=== PATIENT | female | born 1945 | race Caucasian/White ===

== ENCOUNTER → 2016-09-21 | Outpatient (CLI) | payer OTHER ==
[~2016-09-21] MED LIST: ASPI81TA28 PO; CALCTAB7 PO; CARV6.252 PO; HYDR12.55 PO; LISI-725 PO; MELO7.5T6 PO; MISCCAP80 PO; MOXI400T2 PO; MULT-513 PO; OMEG10007 PO
[2016-09-21 13:53] LABS: BLOOD UREA NITROGEN 21 mg/dl (7-18); BUN/CREATININE RATIO 19.2 (10-20); CALCIUM 8.9 mg/dl (8.5-10.1); CARBON DIOXIDE 31 mmol/L (21-32); CHLORIDE 107 mmol/L (98-107); GLUCOSE 83 mg/dl (70-99); SODIUM 143 mmol/L (136-145)
== END | disposition home or self-care (01) ==
LOC: C.LAB1850 09:46
PROVIDERS: ATTEND Internal Medicine Interventional Cardiology
DX: I10 Essential (primary) hypertension (principal); I34.1 Nonrheumatic mitral (valve) prolapse; E78.5 Hyperlipidemia, unspecified; Z11.59 Encounter for screening for other viral diseases

== ENCOUNTER → 2016-12-08 | Outpatient (CLI) | payer OTHER ==
[2016-12-08 09:59] LABS: BASO % 0.6 %; BASO ABS # 0.03 K/uL (0-0.2); COMPLETE YES; EOS % 8.8 %; IG% 0.2 %; LYMPH % 32.6 %; LYMPH ABS # 1.75 K/uL (1.2-3.4); MEAN CELL VOLUME 90.7 fL (80-100); MEAN CORPUSCULAR HGB CONC 35.3 g/dl (32-36); MEAN PLATELET VOLUME 10.1 fL (7.4-10.4); MONO % 6.9 %; NEUT % 50.9 %; PLATELET COUNT 174 K/uL (130-400); RED BLOOD COUNT 4.19 M/uL (4.2-5.4); WHITE BLOOD COUNT 5.36 K/uL (4.8-10.8)
[2016-12-08 10:34] LABS: CHOLESTEROL/HDL RATIO 3.7; THYROID STIMULATING HORMONE 2.66 uIu/ml (0.300-4.500)
== END | disposition home or self-care (01) ==
LOC: C.LAB1850 09:17
PROVIDERS: ATTEND Internal Medicine
DX: E78.5 Hyperlipidemia, unspecified (principal); D72.819 Decreased white blood cell count, unspecified

== ENCOUNTER → 2016-12-24 | Outpatient (CLI) | payer OTHER ==
--- NOTE | 2016-12-24 09:35 | DIAGNOSTIC IMAGING REPORT ---
LUMBAR SPINE W/O CONTRAST CLINICAL HISTORY: 71 years-old Female presenting with BACK AND RIGHT LEG PAIN. TECHNIQUE: Multisequence, multiplanar MR imaging of the lumbar spine was performed without use of intravenous contrast. COMPARISON: Plain radiographs of the lumbar spine from 09/10/[address] of the abdomen pelvis from 02/09/2013. FINDINGS: Motion artifact mildly degrades axial imaging, limiting evaluation at L5-S1. Vertebral bodies maintain normal height and alignment. T1 hyperintense, T2 hyperintense fatty endplate changes at L5-S1 (Modic type 2). Bone marrow signal intensity otherwise normal. Intervertebral disc desiccation at L5-S1 without significant height loss. No increased signal intensity within the disc spaces or facet joints. Mild disc bulges at L4-5 and L5-S1 without significant mass effect on the ventral thecal sac. Mild facet arthropathy also noted at these levels. Mild bilateral neural foraminal narrowing at L5-S1. Remaining neural foramina patent. Few Tarlov cysts noted in the sacral region. Spinal cord is in good position at L1. Cauda equina normal. Paraspinal soft tissues normal. Visualized pelvic structures normal. IMPRESSION: 1. Mild degenerative changes primarily at L4-5 and L5-S1 with mild bilateral neural foraminal narrowing at L5-S1. Electronically signed by: Tommy Vargas M.D. 12/24/2016 9:33 AM Dictated Date/Time: 12/24/2016 9:23 AM
== END | disposition home or self-care (01) ==
LOC: C.MRIBC 08:25
PROVIDERS: ATTEND Orthopaedic Surgery
DX: M47.816 Spondylosis without myelopathy or radiculopathy, lumbar region (principal); M47.817 Spondylosis without myelopathy or radiculopathy, lumbosacral region

== ENCOUNTER → 2017-01-05 | Outpatient (CLI) | payer OTHER ==
--- NOTE | 2017-01-05 10:35 | DIAGNOSTIC IMAGING REPORT ---
FLUOROSCOPICALLY GUIDED INTRA-ARTICULAR LEFT HIP STEROID INJECTION CLINICAL HISTORY: Left hip degenerative joint disease. FLUOROSCOPY TIME: 13 seconds. FINDINGS: Fluoroscopic image was obtained. The procedure, risks and benefits were discussed with the patient and informed written consent was obtained. The procedure was performed by Dr. Turner following a timeout. Fluoroscopy of the left hip demonstrated severe osteoarthritis with near complete loss of the joint space and extensive osteophytosis and sclerosis. Skin overlying the left hip was prepped and draped in sterile fashion and local anesthesia was achieved with 1% lidocaine. Under intermittent fluoroscopic guidance, a 3 1/2 inch 22-gauge needle was directed into left hip joint. Positioning within the joint space was confirmed with injection of 1 cc of Optiray 300. At this time, a mixture containing 2 cc of Celestone and 8 cc of 0.5% Marcaine was injected into the left hip joint. The needle was removed. The patient tolerated the procedure well and no immediate complications were evident. IMPRESSION: Fluoroscopically guided left hip intra-articular injection of 2 cc of Celestone and 8 cc of 0.5% Marcaine. Electronically signed by: Gary Turner M.D. 01/05/2017 10:34 AM Dictated Date/Time: 01/05/2017 10:32 AM
== END | disposition home or self-care (01) ==
LOC: C.RADBC 09:15
PROVIDERS: ATTEND Orthopaedic Surgery
DX: M16.12 Unilateral primary osteoarthritis, left hip (principal)

== ENCOUNTER → 2017-03-25 | Outpatient (CLI) | payer OTHER ==
[~2017-03-25] MED LIST changes: +OPTIRAY 320 IV PRN
--- NOTE | 2017-03-25 15:08 | DIAGNOSTIC IMAGING REPORT ---
CT OF THE ABDOMEN AND PELVIS WITH CONTRAST CLINICAL HISTORY: Abdominal pain. Diarrhea. Evaluate for diverticulitis. COMPARISON STUDY: CT of the abdomen and pelvis February 09, 2013. TECHNIQUE: Following IV administration of 93 mL of Optiray-320, axial images of the abdomen and pelvis were obtained from the lung bases to the proximal femurs. Images were reviewed in the axial, sagittal, and coronal planes. IV contrast was administered without complication. A dose lowering technique was utilized adhering to the principles of ALARA. Oral contrast was administered. CT DOSE: 675.23 mGycm FINDINGS: No pneumatosis, free air or portal venous gas is present. The liver, spleen, adrenal glands, kidneys and pancreas are normal. There is no biliary or pancreatic ductal dilatation. There is no evidence for bowel obstruction. This extensive sigmoid diverticulosis. There is equivocal infiltration adjacent to the mid sigmoid colon. This may reflect mild acute diverticulitis. In addition, there is mild wall thickening in the transverse colon which raises the possibility of a nonspecific colitis. No pneumatosis, free air or portal venous gas is present. A 2.7 cm water attenuation left ovarian lesion is noted. There is severe osteoarthritis of the left hip. IMPRESSION: 1. Extensive sigmoid diverticulosis with possible mild acute sigmoid diverticulitis. No free air or abscess. 2. Mild transverse colon wall thickening which may reflect a nonspecific colitis. 3. 2.7 cm left ovarian lesion. This likely reflects an ovarian cyst but is abnormal postmenopausal patient and a follow-up nonemergent pelvic ultrasound could be obtained to evaluate for complexity. Electronically signed by: Gary Turner M.D. 03/25/2017 3:07 PM Dictated Date/Time: 03/25/2017 2:53 PM
== END | disposition home or self-care (01) ==
LOC: C.CTS 12:34
PROVIDERS: ATTEND Physician Assistant
DX: R10.9 Unspecified abdominal pain (principal); R19.7 Diarrhea, unspecified

== ENCOUNTER → 2017-09-30 | Outpatient (CLI) | payer OTHER ==
[~2017-09-30] MED LIST changes: -OPTIRAY 320 IV PRN
[2017-09-30 10:08] LABS: ALT/SGPT 24 U/L (12-78); AST/SGOT 21 U/L (15-37); BLOOD UREA NITROGEN 15 mg/dl (7-18); CALCIUM 9.3 mg/dl (8.5-10.1); CARBON DIOXIDE 31 mmol/L (21-32); CREATININE 1.06 mg/dl (0.60-1.20); GLUCOSE 82 mg/dl (70-99); POTASSIUM 3.8 mmol/L (3.5-5.1); SODIUM 140 mmol/L (136-145)
[2017-09-30 10:19] LABS: CHOLESTEROL 198 mg/dl (0-200); LDL CHOLESTEROL CALCULATED 113 mg/dl
== END | disposition home or self-care (01) ==
LOC: C.LAB1850 08:24
PROVIDERS: ATTEND Internal Medicine
DX: E78.5 Hyperlipidemia, unspecified (principal); I10 Essential (primary) hypertension

== ENCOUNTER → 2017-12-31 | Outpatient (CLI) | payer OTHER ==
--- NOTE | 2018-01-03 07:45 | MAMMOGRAPHY REPORT ---
BILATERAL DIGITAL SCREENING MAMMOGRAM TOMOSYNTHESIS WITH CAD: 12/31/2017 CLINICAL HISTORY: Routine screening. Patient has no complaints. TECHNIQUE: The study was acquired using full field digital technology and interpreted from soft copy. Breast tomosynthesis in addition to standard 2D mammography was performed. Current study was also ev aluated with a Computer Aided Detection (CAD) system. COMPARISON: Comparison is made to exams dated: 04/21/2013 mammogram, 07/02/2011 mammogram, 04/17/2010 u ltrasound biopsy, 03/31/2010 ultrasound, 03/31/2010 mammogram, and 03/25/2010 mammogram - [facility]. BREAST COMPOSITION: The tissue of both breasts is heterogeneously dense, which may obscure small mass es. FINDINGS: There is an increasingly prominent asymmetry with associated architectural distortion measuring 18 mm in the left central breast. A biopsy clip is seen within the asymmetry. Recommend spot compression tomosynthesis views and possible targeted ultrasound for further evaluation. The remainder of both breasts are stable compared to prior exams, without suspicious masses, calcific ations, or areas of architectural distortion noted. IMPRESSION: ACR BI-RADS CATEGORY 0: INCOMPLETE EVALUATION: NEED ADDITIONAL IMAGING EVALUATION Left breast asymmetry and associated architectural distortion, for which additional imaging evaluatio n is recommended. The patient will be called to schedule an appointment. Some breast cancers are not detected with mammography. A negative mammographic report should not bailee y biopsy if a clinically suggestive mass is present. Mackenzie Crum M.D. /:12/31/2017 13:51:08 Heel Compressor: Marisel Clinton, [facility] letter sent: Addl Imaging 0 BI-RADS Code: ACR BI-RADS Category 0: Incomplete Evaluation: Need Additional Imaging Evaluation
== END | disposition home or self-care (01) ==
LOC: C.MAMM 13:08
PROVIDERS: ATTEND Internal Medicine
DX: Z12.31 Encounter for screening mammogram for malignant neoplasm of breast (principal); R92.8 Other abnormal and inconclusive findings on diagnostic imaging of breast

== ENCOUNTER → 2018-01-11 | Outpatient (CLI) | payer OTHER ==
--- NOTE | 2018-01-11 15:23 | MAMMOGRAPHY REPORT ---
UNILATERAL LEFT DIGITAL DIAGNOSTIC MAMMOGRAM TOMOSYNTHESIS AND LEFT ULTRASOUND: 01/11/2018 CLINICAL HISTORY: 72-year-old woman called back from screening mammography for an increasingly promin ent asymmetry with associated architectural distortion in the central left breast. Patient has a hist ory of prior left breast biopsy. TECHNIQUE: Spot compression tomosynthesis left CC and MLO views were obtained. COMPARISON: Comparison is made to exams dated: 12/31/2017 mammogram, 04/21/2013 mammogram, 07/02/2011 m ammogram, 03/31/2010 mammogram, 03/25/2010 mammogram - [facility], and 03/14/2008. Ultrasound of was performed. BREAST COMPOSITION: There are scattered areas of fibroglandular density in left breast. FINDINGS: The spot compression tomosynthesis views of the left breast demonstrate a focal area of arc hitectural distortion in the approximate 6:00 posterior left breast measuring 19 x 16 x 17 mm. The d istortion spicules do extend beyond these mammographic measurements and there are 2 masslike componen ts in addition to the distortion. The distortion is better visualized comparing to the prior mammogr ams, as only 2D views were available at that time. A biopsy marker clip is seen with in the larger m asslike component that is slightly superior and lateral. No other areas of architectural distortion, asymmetries, masses or suspicious calcifications are identified in the left breast. Further evaluat ion with ultrasound was performed. Targeted ultrasound was performed in the 5:00 to 6:00 left breast. In the 5:00 axis, 5 cm from the n ipple, there is a focal ill-defined shadowing mass with associated architectural distortion. Given t he ill-defined nature, accurate measurements are difficult to obtain on ultrasound, but this mass glenys sures approximately 20.5 x 8.4 x 12.7 mm. When comparing back to prior available mammograms and ultr asounds, a subtle lesion identified in 2009 does not have any caliber measurements but measured appro ximately 7 mm. Given the possible increase in size on ultrasound and prior mammograms, definitive ch aracterization with an ultrasound-guided core biopsy is recommended. IMPRESSION: ACR BI-RADS CATEGORY 4: SUSPICIOUS, ULTRASOUND ACR BI-RADS CATEGORY 4: SUSPICIOUS 1. There is increasingly prominent mammographic focal asymmetry with associated architectural distor tion best seen on the 3D images, in the 5:00 to 6:00 posterior left breast, with corresponding abnorm ality seen in the 5:00 axis on ultrasound. A left breast ultrasound-guided core needle biopsy is the refore recommended. These results and recommendations were discussed with the patient at the time of the exam. She tenta tively scheduled a left breast biopsy prior to leaving the department. Some breast cancers are not detected with mammography. A negative mammographic report should not bailee y biopsy if a clinically suggestive mass is present. Radha Phipps M.D. ay/:01/11/2018 12:30:07 Ship Superintendent: Shanti Stiles RT(R)(M), [facility] letter sent: Abnormal 4/5 OVERALL STUDY BIRADS: 4 Suspicious abnormality
== END | disposition home or self-care (01) ==
LOC: C.MAMM 10:05
PROVIDERS: ATTEND Internal Medicine
DX: R92.8 Other abnormal and inconclusive findings on diagnostic imaging of breast (principal)

== ENCOUNTER → 2018-01-13 | Outpatient (CLI) | payer OTHER ==
--- NOTE | 2018-01-13 08:26 | Discharge Instructions ---
Discharge Instructions Procedure Procedure Date: Jan 13, 2018. Reason for visit: Left Mass. Discharge Discharge Date: Jan 13, 2018. Discharge Diagnosis: status post breast biopsy Instructions Activity Recommendations: Additional Limitations (see below) Return to School/Work: no limitations Recommended Home Diet: No Limitations Provider Instructions: ACTIVITY RECOMMENDATIONS: * No lifting, pushing, pulling or exercising the affected side for three days. RETURN TO SCHOOL/WORK: * You may return to work/school after the procedure, but do not perform any strenuous activities for 24 to 48 hours. MEDICATIONS: * Tylenol (two 325 mg) every four to six hours if needed for mild pain (if not allergic to Tylenol). DIET: * Resume previous diet. SPECIAL CARE INSTRUCTIONS: * Keep biopsy site dry for 24 hours. May shower after 24 hours, but do not soak (bathe) incision. * May remove Tegaderm (plastic patch) 24 hours after procedure * Leave the steri-strips on for one week. Allow the steri-strips to fall off by themselves. If not off after one week, you may remove them. You may place a Bandaid crosswise over the strips, if desired. * Apply ice 10 minutes on and 10 minutes off as needed. * Wear a bra at bedtime to sleep more comfortably for 2-3 days. * Your referring physician should have the results after approximately 5 to 7 business days. * Call for unusual bleeding, fever, drainage, etc or if you have any questions call during normal business hours or after hours call Dr Crum, . FOLLOW UP VISIT: Follow-up with Referring Physician as scheduled. Allergies Coded Allergies: Penicillins (Verified Allergy, Intermediate, HIVES, 12/13/15) Metronidazole (Verified Adverse Reaction, Intermediate, " DEHYDRATION, WEAKNESS, NAUSEA", 12/13/15) Sulfa Drugs (Verified Adverse Reaction, Mild, UPSET STOMACH, 12/13/15) Doxycycline (Verified Adverse Reaction, Unknown, UPSET STOMACH, 12/13/15) Beau Burciaga Recommendations: Call your doctor if: * Temperature above 101 degrees * Pain not relieved by pain medicine ordered * There is increased drainage or redness from any incision * You have any unanswered questions or concerns. Your Doctors Instructions noted above were prepared by provider Mackenzie Crum. Patient Signature Section: Patient Instructions Signature Page Herlinda Edgar Patient (or Guardian) Signature/Date: I have read and understand the instructions given to me by my caregivers. Caregiver/RN/Doctor Signature/Date: The above-named patient and/or guardian has received patient instructions on this date. + Original Patient Signature Page (only) stays with chart. Please make copy for patient.
--- NOTE | 2018-01-13 14:57 | MAMMOGRAPHY REPORT ---
THIS REPORT HAS BEEN AMENDED. ULTRASOUND GUIDED BIOPSY LEFT BREAST: 01/13/2018 CLINICAL HISTORY: Ill-defined hypoechoic shadowing mass in the left 5:00 breast. PATIENT CONSENT: The procedure, risks and benefits were discussed with the patient and informed writt en consent was obtained. A timeout was performed immediately prior to the procedure. PROCEDURE DESCRIPTION: With ultrasound guidance, aseptic technique, and lidocaine as the local anesth etic (1% lidocaine to anesthetize the skin and 1% lidocaine with epinephrine to anesthetize the deepe r tissues), the ill-defined hypoechoic shadowing mass in the left 5:00 breast was sampled 5 times wit h a 14-gauge Achieve biopsy needle. A metallic localizer clip was not placed as the patient already has a ribbon-shaped clip in the location from a remote biopsy, and on discussion the patient did not desire placement of another clip. Direct pressure was applied to the site immediately post procedure until hemostasis was achieved. Steri-Strips were placed over the site and covered with an Opsite pat ch. The patient tolerated the procedure without complication. She was given wound care instructions. The specimens were sent to pathology for analysis. COMPARISON: Comparison is made to exams dated: 01/11/2018 ultrasound, 01/11/2018 mammogram, 12/31/2017 mammogram, 04/21/2013 mammogram, 07/02/2011 mammogram, and 03/25/2010 mammogram - [facility]. IMPRESSION: ULTRASOUND GUIDED BIOPSY Ultrasound-guided core needle biopsy of the left 5:00 breast mass. A clip was not placed as the kathy ent already has a biopsy clip at this site from a remote biopsy. The patient will receive pathology results from her referring provider. Mackenzie Crum M.D. ah/:01/13/2018 08:29:42 Lacquer Shader: RT Wes(R)(M), [facility] AMENDMENT: 01/19/2018 Mackenzie Crum M.D. Pathology results from ultrasound-guided biopsy of the left 5:00 breast mass were reviewed on . 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 Pathology results are malignant an d concordant with the imaging appearance. Recommend surgical consultation. Amended BI-RADS: ACR BI-RADS Category 2: Benign
== END | disposition home or self-care (01) ==
LOC: C.MAMM 07:51
PROVIDERS: ATTEND Internal Medicine
DX: N63.20 Unspecified lump in the left breast, unspecified quadrant (principal); C50.912 Malignant neoplasm of unspecified site of left female breast